=== PATIENT | male | born 1955 | race Hispanic/Latino ===

== ENCOUNTER → 2024-07-31 | Outpatient (CLI) | payer OTHER, MEDICARE ==
[~2024-07-31] MED LIST: GADOTERATE MEGLUMINE 10 MMOL/20 ML VIAL IV ONE
--- NOTE | 2024-07-31 13:15 | HMCIMG ---
MR BRAIN WWO CON HISTORY: Headaches COMPARISON: None TECHNIQUE: MRI of the brain was performed utilizing multiple pulse sequences in axial, coronal and sagittal planes. Patient was given 18 cc of Clariscan through intravenous route. FINDINGS: The ventricles and extraventricular CSF spaces are dilated consistent with cerebral atrophy. Nonspecific white matter changes are seen. Old encephalomalacia changes are seen of the left frontal lobe. There is no midline shift, mass effect or herniation. No subacute hemorrhage is seen. No MR evidence of acute infarct is seen in the diffusion weighted images. Cerebellar tonsils are in normal position. There are mucoperiosteal thickening involving the paranasal sinuses consistent with pansinusitis. IMPRESSION: 1. No MR evidence of acute infarct is seen in the diffusion weighted images. There is enhancing soft tissue mass at the medial aspect of the left orbit at the lamina papyracea measuring 2 x 2.1 cm suspicious for neoplastic process. Ophthalmologic consultation is recommended. Atrophy with white matter changes. Sinusitis.
--- NOTE | 2024-07-31 13:16 | HMCIMG ---
MR ANGIO HEAD, WO CON HISTORY: Dizziness COMPARISON: None TECHNIQUE: MRA of the brain was performed using three-dimensional [id number] angiographic techniques without intravenous contrast administration. FINDINGS: Soft tissue mass seen at the lamina papyracea of left orbit. No MR evidence of cerebral aneurysm or abnormal arteriovenous communication is seen. Diffuse atherosclerosis changes are present. Left vertebral artery is not visualized. There is takeoff of the right posterior cerebral artery. Vertebrobasilar arterial system is otherwise grossly within normal limits. IMPRESSION: 1. Atherosclerotic disease. Otherwise unremarkable MRA of the brain. Soft tissue mass seen at the lamina papyracea of left orbit.
== END | disposition home or self-care (01) ==
LOC: RAH 10:39
PROVIDERS: ATTEND Family Medicine
DX: G31.89 Other specified degenerative diseases of nervous system (principal); R51.0 Headache with orthostatic component, not elsewhere classified; J32.9 Chronic sinusitis, unspecified; R90.82 White matter disease, unspecified; I67.2 Cerebral atherosclerosis
CPT/HCPCS: 70553; 70544; A9575